=== PATIENT | male | born 1940 | race Caucasian/White ===

== ENCOUNTER 2023-08-12 10:15 | Emergency (ER) | payer MEDICARE, OTHER, SELFPAY ==
[2023-08-12] VITALS (37 sets, daily range): BP systolic 119–179; BP diastolic 52–85; PULSE 60–125; RESP 12–22; TEMP 36.5–36.7; O2SAT 93–100
--- NOTE | 2023-08-12 10:15 | RT.EKG_ITS ---
APPROVED REPORT Exam: Resting ECG Reason for Exam: [facility] Patient Location: E HR:65 bpm ECG Measurements Heart Rate 65 AXIS ND 201 P 45 QRSd 85 QRS 3 QT 425 T 49 QTc 442 Conclusion Sinus rhythm...normal P axis, V-rate 60- 99
--- NOTE | 2023-08-12 10:30 | DI.CT_ITS ---
Exam(s) CT HEAD WO EXAM: CT HEAD WO CLINICAL HISTORY: Patient, expressive aphasia. TECHNIQUE: Imaging Protocol: Axial computed tomography images with coronal and sagittal reformatted images were created and reviewed COMPARISON: CT HEAD WITHOUT CONTRAST from 10/29/2014 FINDINGS: The examination is limited due to patient motion artifact. Ventricles and Extra axial spaces: Normal in size and morphology for the patient's age. Hemorrhage: None. Cerebral parenchyma: There are areas of decreased attenuation in the white matter consistent with chr onic microvascular ischemic disease. No acute territorial infarct is seen. 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 Midline shift: None. Brainstem/Cerebellum: Normal. Calvarium: Normal. Visualized Paranasal sinuses/Mastoids: There is mucosal thickening in the maxillary sinuses bilateral ly. There is soft tissue seen in the nasal passageways bilaterally. There is also soft tissue seen in the frontal sinuses bilaterally causing mild expansion of the sinuses. The findings are suspiciou s for polyps and/or mucous retention cysts. Soft Tissues: Unremarkable. IMPRESSION: 1. No acute intracranial process. 2. Age-related cerebral atrophy and chronic microvascular ischemic disease. 3. Findings suspicious for nasal polyps and/or mucous retention cysts or chronic sinusitis. RADIATION DOSE DELIVERED: Total DLP DATA REPOSITORY: All CT scans at this facility are submitted to the National Radiology Data Registry (NRDR) Dose Index Registry (DIR) with the [employer] (ACR). RADIATION OPTIMIZATION: All CT scans at this facility use at least one of these dose optimization te chniques: automated exposure control; mA and/or kV adjustment per patient size (includes targeted exa ms where dose is matched to clinical indication); or iterative reconstruction.
[2023-08-12 10:53] LABS: Abs Immature Grans 0.03 10^3/uL (0.0-0.06); Absolute Basophil Count 0.03 10^3/uL (0.0-0.2); Absolute Lymphocyte Count 1.68 10^3/uL (1.2-3.4); Absolute Monocyte Count 0.72 10^3/uL (0.1-0.8); Absolute Neutrophil Count 5.09 10^3/uL (1.2-6.7); Basophils % 0.4; Eosinophils % 3.8; HCT 36.5 % (40.0-50.0); HGB 12.5 g/dL (13.5-17.5); Immature Grans % 0.4; Lymphocytes % 21.4; MCH 30.7 pg (27.0-33.0); MCHC 34.2 % (32.0-36.0); MCV 90 fL (80-95); MPV 10.1 fL (8.0-11.0); Monocytes % 9.2; Neutrophils % 64.8; Platelet Count 193 10^3/uL (130-400); RBC 4.07 10^6/uL (4.36-5.78); RDW-SD 42.6 fL; WBC 7.85 10^3/uL (4.4-10.8)
[2023-08-12 10:59] LABS: Bilirubin Negative (Negative); Blood Negative (Negative); Clarity Clear (Clear); Glucose Negative (Negative); Ketones Negative (Negative); Leukocyte Esterase Trace (Negative); Nitrite Negative (Negative); Specific Gravity 1.015 (1.005-1.025); Urobilinogen 0.2 mg/dL (Up to 0.2); pH 7.5 (5-8)
[2023-08-12 11:05] LABS: Bacteria Rare HPF (Negative); C & S Indicated? Yes; Casts Negative LPF (Negative); Crystals Negative HPF (Negative); Epithelial Cells Rare HPF (Negative); Mucus Negative (Negative); RBC Negative HPF (0-2)
[2023-08-12 11:27] LABS: *AMPHETAMINES SCREEN URINE Negative (Negative); *BARBITURATES SCREEN URINE Negative (Negative); *BENZODIAZEPINES SCREEN URINE Negative (Negative); Cannabinoids THC Negative (Negative); Cocaine Screen,Urine Negative (Negative); METHADONE URINE SCREEN Negative (Negative); OPIATES URINE SCREEN Negative (Negative); Tricyclic Antidepressants Negative (Negative)
[2023-08-12 11:29] LABS: ALT 17 U/L (16-63); AST 18 U/L (15-37); Albumin 3.7 g/dL (3.4-5.0); Alkaline Phosphatase 60 U/L (46-116); Anion Gap 13.4 mmol/L (3-11); BUN 34 mg/dL (7-18); Bilirubin, Total 0.8 mg/dL (0.2-1.0); CO2 21.6 mmol/L (21.0-32.0); CREATININE 1.6 mg/dL (0.70-1.30); Calcium 9.1 mg/dL (8.5-10.1); Chloride 104 mmol/L (98-107); ETHANOL BLOOD 3.5 mg/dL (<10); Estimated GFR 43.02 (mL/min/1.73m2); Glucose 115 mg/dL (74-106); Magnesium 1.9 mg/dL (1.8-2.4); Potassium 4.4 mmol/L (3.5-5.1); Sodium 139 mmol/L (136-145); Total Protein 6.9 g/dL (6.4-8.2); Troponin I < 50 ng/L (< or =60)
--- NOTE | 2023-08-12 12:00 | DI.MRI_ITS ---
Exam(s) MR BRAIN WO EXAM: MR BRAIN WO CLINICAL HISTORY: altered, expressive aphasia TECHNIQUE: Multiplanar multisequence MRI of the brain was performed. COMPARISON: CT HEAD WITHOUT CONTRAST from 10/29/[address] HEAD WO from 08/12/2023 FINDINGS: The examination is limited due to patient motion artifact. VENTRICLES AND EXTRA AXIAL SPACES: Normal in size and morphology for the patient's age. MIDLINE SHIFT: None. CEREBRAL PARENCHYMA: No focus of restricted diffusion to suggest acute infarct. No space-occupying le radha identified. There are areas of hyperintense signal seen in the white matter most consistent with chronic microvascular ischemic disease. HEMORRHAGE: None. BRAINSTEM/CEREBELLUM: Normal. CALVARIUM: Normal. VISUALIZED PARANASAL SINUSES/MASTOIDS:Pansinusitis. Soft tissues again seen in the nasal passageways suggesting nasal polyps. Mucous retention cysts or polyps may also lie within the visualized parana collin sinuses. [place]: Normal flow void. PITUITARY GLAND: Unremarkable. OTHER FINDINGS: None. IMPRESSION: 1. There is no evidence of an acute infarct. 2. Findings of age-related cerebral atrophy and chronic microvascular ischemic disease. 3. Pansinusitis with mucous retention cysts present. 4. Soft tissue seen in the nasal passageways suggesting nasal polyposis. DATA REPOSITORY:
[2023-08-12] MEDS: Aspirin 325 MG TAB PO (12:43)
[2023-08-12] MEDS: Omnipaque 350 MG/ML 100 ML BTL IJ (13:03)
[2023-08-12] MEDS: Normal Saline - Diluent 50 ML VIAL IV (13:09)
--- NOTE | 2023-08-12 13:15 | DI.CT_ITS ---
Exam(s) CT BRAIN NECK CTA EXAM: CT BRAIN NECK CTA CLINICAL HISTORY: expressive aphasia, pirior severe int carotid sten. TECHNIQUE: Imaging Protocol: Axial CT angiography was performed with multi-slice acquisition and mu lti-planar and/or 3D reconstructions. CONTRAST MATERIAL: Intravenous: Omnipaque 350 contrast volume:100 mL COMPARISON: CT HEAD WITHOUT CONTRAST from 10/29/2014 US CAROTID ULTRASOUND from 10/30/[address] HEAD WO from 08/12/2023 FINDINGS: CT Head and W: Ventricles and Extra axial spaces: Normal in size and morphology for the patient's age. Hemorrhage: None. Cerebral parenchyma: There are areas of decreased attenuation in the white matter consistent with chr onic microvascular ischemic disease. No acute territorial infarct are seen. Midline shift: None. Brainstem/Cerebellum: Normal. Soft Tissues: Unremarkable. Enhancement: Unremarkable. CTA Neck W: Common Carotid: Right: No dissection, occlusion or significant stenosis. Mild atherosclerosis in the distal common c arotid artery but no significant stenosis. Left: No dissection, occlusion or significant stenosis. Mild atherosclerosis without significant konrad nosis. External Carotid: Right: No occlusion or significant stenosis. Left: No occlusion or significant stenosis. Internal Carotid: Right: No dissection, occlusion or significant stenosis. Atherosclerosis proximally with less than 5 0 percent stenosis. Left: No dissection, occlusion or significant stenosis. Vertebral Artery: Right: No dissection, occlusion or significant stenosis. Left: No dissection, occlusion or significant stenosis. Atherosclerosis at the origin without signif icant stenosis. Lung Apices: Normal. Bones: Within normal limits for the patient's age. Soft Tissues: Normal. Thyroid gland: Unremarkable. CTA Brain W: Internal Carotid Arteries: Atherosclerosis bilaterally without significant stenosis. No aneurysm or o cclusion. Anterior Cerebral Arteries: Right: No aneurysm, occlusion or significant stenosis. Left: No aneurysm, occlusion or significant stenosis. Middle Cerebral Arteries: Right: No aneurysm, occlusion or significant stenosis. Left: No aneurysm, occlusion or significant stenosis. Posterior Cerebral Arteries: Right: No aneurysm, occlusion or significant stenosis. Left: No aneurysm, occlusion or significant stenosis. Vertebral Arteries: Right: No aneurysm, occlusion or significant stenosis. Left: No aneurysm, occlusion or significant stenosis. Basilar Artery: No aneurysm, occlusion or significant stenosis. IMPRESSION: 1. No large vessel occlusion or significant stenosis on the CT angiography of the head. 2. No acute intracranial process. 3. No occlusion or significant stenosis on the CT angiography of the neck. RADIATION DOSE DELIVERED: Total DLP DATA REPOSITORY: All CT scans at this facility are submitted to the National Radiology Data Registry (NRDR) Dose Index Registry (DIR) with the [employer] (ACR). RADIATION OPTIMIZATION: All CT scans at this facility use at least one of these dose optimization te chniques: automated exposure control; mA and/or kV adjustment per patient size (includes targeted exa ms where dose is matched to clinical indication); or iterative reconstruction.
--- NOTE | 2023-08-12 13:34 | HPE_ITS ---
Date of service: 08/12/23 Time of Service: 14:17 [facility] All Active Problems (Updated 10/31/14 @ 07:14 by Melissa Narvaez) Non-hemorrhagic stroke (Acute 10/29/14) Hyperlipidemia (Chronic) Social History Smoking/Tobacco Use Status: Never Smoking risk assessment performed?: Yes Drug use: Never Housing: house Do you feel safe at home: Yes Do you feel safe in your relationship?: Yes Meds Allergies and Home Medications Allergies Allergy/AdvReac Type Severity Reaction Status Date / Time lactase [From Dairy Aid] Allergy Unverified 10/29/14 16:08 shellfish derived Allergy Unverified 10/29/14 16:08 Home Medications Medication Instructions Recorded Confirmed Type atenolol 100 mg tablet 100 mg PO DAILY 10/30/14 08/12/23 History carboxymethylcellulose sodium 0.5 30 ea ophthalmic (eye) QID 10/30/14 08/12/23 History % eye drops in a dropperette (Refresh Plus) ergocalciferol (vitamin D2) 1,250 50,000 units PO DIRECTED 10/30/14 08/12/23 History mcg (50,000 unit) capsule (Vitamin D2) ibuprofen 200 mg tablet 200 mg PO PRN PRN 10/30/14 08/12/23 History loperamide 2 mg capsule 2 mg PO DIRECTED PRN 10/30/14 08/12/23 History pravastatin 40 mg tablet 40 mg PO HS 10/30/14 08/12/23 History prazosin 1 mg capsule 1 mg PO DAILY 10/30/14 08/12/23 History prochlorperazine 25 mg rectal 25 mg AK DIRECTED PRN Nausea 10/30/14 08/12/23 History suppository ranitidine HCl 300 mg tablet 300 mg PO BID 10/30/14 08/12/23 History aspirin 325 mg tablet,delayed 325 mg PO DAILY ##30 10/31/14 08/12/23 Rx release Results Labs 08/12/23 10:45 08/12/23 10:45 Labs: Laboratory Results - last 24 hr 08/12/23 08/12/23 10:30 10:45 WBC 7.85 RBC 4.07 L Hgb 12.5 L Hct 36.5 L MCV 90 MCH 30.7 MCHC 34.2 RDW 13.0 Plt Count 193 MPV 10.1 Immature Gran % 0.4 Neutrophils % 64.8 Lymphocytes % 21.4 Monocytes % 9.2 Eosinophils % 3.8 Basophils % 0.4 Nucleated RBC % 0.0 Absolute Neutrophils 5.09 Absolute Lymphocytes 1.68 Absolute Monocytes 0.72 Absolute Eosinophils 0.30 Absolute Basophils 0.03 Sodium 139 Potassium 4.4 Chloride 104 Carbon Dioxide 21.6 Anion Gap 13.4 H BUN 34 H Creatinine 1.6 H Est GFR (CKD-EPI 2020) 43.02 Glucose 115 H Calcium 9.1 Magnesium 1.9 Total Bilirubin 0.8 AST 18 ALT 17 Alkaline Phosphatase 60 Troponin I < 50 Total Protein 6.9 Albumin 3.7 Urine Color Yellow Urine Clarity Clear Urine pH 7.5 Ur Specific Reading 1.015 Urine Protein Negative Urine Ketones Negative Urine Blood Negative Urine Nitrite Negative Urine Bilirubin Negative Urine Urobilinogen 0.2 Ur Leukocyte Esterase Trace H Urine RBC Negative Urine WBC 3-5 Ur Epithelial Cells Rare Urine Crystals Negative Urine Bacteria Rare Urine Casts Negative Urine Mucus Negative Ur Culture Indicated? Yes Urine Glucose Negative Urine Opiates Screen Negative Urine Methadone Screen Negative Ur Barbiturates Screen Negative Ur Tricyclics Screen Negative Ur Amphetamines Screen Negative U Benzodiazepines Scrn Negative Urine Cocaine Screen Negative Ur THC Screen Negative Ethyl Alcohol 3.5 Last Vital Signs Temp 97.7 F 08/12/23 11:45 Pulse 63 08/12/23 11:45 Resp 15 08/12/23 11:50 BP 157/77 H 08/12/23 11:45 Pulse Ox 98 08/12/23 11:45
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
== END 2023-08-12 15:49 | disposition home or self-care (01) ==
PROVIDERS: Emergency Provider Student in an Organized Health Care Education/Training Program; PCP Internal Medicine
DX: R41.82 Altered mental status, unspecified (principal); R47.01 Aphasia; J32.4 Chronic pansinusitis; Z79.82 Long term (current) use of aspirin; Z79.899 Other long term (current) drug therapy; Z53.29 Procedure and treatment not carried out because of patient's decision for other reasons
CPT/HCPCS: 70496; 70498; 80053; 80307; 93005; 99285; 70450; 70551; 80320; 81003; 81015; 83735; 84484; 85025; 87086; 93010; 99284; J3490